=== PATIENT | male | born 1960 | race Caucasian/White ===

== ENCOUNTER 2018-04-06 02:22 | Emergency (ER) | payer MEDICAID ==
[~2018-04-06] VITALS: Ht 167.6 cm; Wt 82.1 kg
[2018-04-06 02:39] VITALS: BP_SYST 158
--- NOTE | 2018-04-06 02:40 | NUR ---
Patient to ER bed 07 to gown for evaluation. Side rails up. Will assume care
--- NOTE | 2018-04-06 02:45 | NUR ---
Patient brought in by and son complaining of left flank pain starting yesterday at 1900 that gradually went away and reports the pain returned at midnight tonight. Pain 10/10. Denies any nausea, vomiting or diarrhea. No other complaints/injuries per patient or as noted. Will continue to monitor.
[2018-04-06] MEDS ORDERED: NACL 0.9% 1,000 ML IV ONE (02:50)
--- NOTE | 2018-04-06 02:51 | NUR ---
ER at bedside examining patient.
[2018-04-06] MEDS ORDERED: KETOROLAC TROMETHAMINE 30 MG VIAL IVP ONE (03:00)
[2018-04-06] MEDS ORDERED: MORPHINE 4 MG/ML INJ. SYRINGE IVP ONE (03:00)
[2018-04-06] MEDS ORDERED: ONDANSETRON HCL 4 MG/2 ML VIAL IVP ONE (03:00)
--- NOTE | 2018-04-06 03:16 | NUR ---
# 22 gauge angiocath placed to RAC. Use of asceptic technique. Opsite placed over site. Blood return noted. Blood for lab drawn from site. Flushed with 10 cc of normal saline. No evidence of infiltration noted. Patient tolerated well.
--- NOTE | 2018-04-06 03:25 | NUR ---
EKG performed at by BRIANA Arredondo. Physician given copy of EKG for review.
[2018-04-06 03:43] LABS: BASOPHILS % (AUTO) 0.3 % (0.0-2.0); EOSINOPHILS # (AUTO) 0.1 K/uL (0.0-0.4); EOSINOPHILS % (AUTO) 0.6 % (0.0-4.0); HEMATOCRIT 46.3 % (36-54); HEMOGLOBIN 15.8 g/dL (14.0-18.0); LYMPHOCYTES # (AUTO) 1.5 K/uL (1.0-5.5); LYMPHOCYTES % (AUTO) 11.5 % (20.5-51.5); MEAN CORPUSCULAR HEMOGLOBIN 31 pg (27-31); MEAN CORPUSCULAR HGB CONC 34 % (32-36); MEAN CORPUSCULAR VOLUME 90 fL (79.0-98.0); MONOCYTES # (AUTO) 0.6 K/uL (0.0-1.0); MONOCYTES % (AUTO) 4.7 % (1.7-9.3); NEUTROPHILS # (AUTO) 10.5 K/uL (1.8-7.7); NEUTROPHILS % (AUTO) 82.9 % (40.0-70.0); PLATELET COUNT (AUTO) 245 K/uL (130-430); RED BLOOD CELL COUNT(AUTO) 5.12 MIL/uL (4.2-6.2); RED CELL DISTRIBUTION WIDTH 11.5 % (9.0-15.0); WHITE BLOOD COUNT (AUTO) 12.7 K/uL (4.8-10.8)
[2018-04-06 03:46] LABS: BILIRUBIN,URINE NEGATIVE (NEGATIVE); BLOOD, URINE 3+ (NEGATIVE); CLARITY/URINE CLEAR (CLEAR); COLOR,URINE YELLOW (YELLOW); GLUCOSE,URINE NEGATIVE (NEGATIVE); KETONES,URINE TRACE (NEGATIVE); LEUKOCYTE ESTERASE ,URINE NEGATIVE (NEGATIVE); NITRITE, URINE NEGATIVE (NEGATIVE); PROTEIN URINE TRACE (NEGATIVE); UROBILINOGEN,URINE 0.2 (0.2-1.0)
[2018-04-06 03:51] LABS: CALCIUM 9.3 mg/dL (8.4-11.0); CREATININE 1.34 mg/dL (0.55-1.30); POTASSIUM 3.9 mmol/L (3.5-5.1)
[2018-04-06 04:01] LABS: ALBUMIN 4.5 g/dL (3.4-4.8); BACTERIA,URINE None Seen /HPF (None Seen); TOTAL BILIRUBIN 0.6 mg/dL (0.0-1.0); WBC,URINE 0-3 /HPF (0-3)
--- NOTE | 2018-04-06 04:26 | NUR ---
Report given to BRIANA Vazquez
[2018-04-06 05:15] VITALS: BP_SYST 145
--- NOTE | 2018-04-06 05:15 | NUR ---
Patient given written and verbal discharge instructions and verbalizes understanding. ER MD Franco discussed with patient the results and treatment provided. Patient in stable condition. ID arm band removed. IV catheter removed intact and dressing applied, no active bleeding. Rx of Motrin, Flomax, and [place] given. Patient educated on pain management and to follow up with PMD. Pain Scale 2/10. Opportunity for questions provided and answered. Medication side effect fact sheet provided.
== END 2018-04-06 05:15 | disposition home or self-care (01) ==
LOC: SED 02:22
DX: N20.0 Calculus of kidney (principal)
CPT/HCPCS: 36415; 74176; 80053; 81000; 83690; 84484; 85025; 93005; 96374; 96375; 99284; J1885; J2270; J2405; J7030

== ENCOUNTER 2019-02-06 09:43 | Emergency (ER) | payer MEDICAID ==
[~2019-02-06] VITALS: Ht 170.2 cm; Wt 78.0 kg
[2019-02-06 09:45] VITALS: BP_SYST 145
[2019-02-06] MEDS ORDERED: CYCLOBENZAPRINE HCL 10 MG TABLET (FLEXERIL) PO ONE (10:15)
[2019-02-06] MEDS ORDERED: KETOROLAC TROMETHAMINE 30 MG VIAL IM ONE (10:15)
[2019-02-06] MEDS ORDERED: HYDROcodone/ACETAMIN 5-325 MG TAB (NORCO/ VICODIN) PO ONE (10:45)
[2019-02-06 11:59] VITALS: BP_SYST 134
== END 2019-02-06 11:59 | disposition home or self-care (01) ==
LOC: SED 09:43
DX: S39.012A Strain of muscle, fascia and tendon of lower back, initial encounter (principal); X58.XXXA Exposure to other specified factors, initial encounter; Y93.89 Activity, other specified; Y92.89 Other specified places as the place of occurrence of the external cause; Y99.8 Other external cause status
CPT/HCPCS: 96372; 99283; J1885